=== PATIENT | male | born 1995 | race Caucasian/White ===

== ENCOUNTER → 2018-10-13 09:03 | Outpatient (CLI) | payer BC, SELFPAY ==
[2016-12-20 17:16] VITALS: BMI 34.8
--- NOTE | 2018-10-13 09:10 | RAD_ITS ---
STUDY: X-RAY - ABDOMEN/PELVIS REASON FOR EXAM: Male, 23 years old. Blood in the stool. Left lower quadrant firmness. TECHNIQUE: Single AP view of the abdomen / pelvis. COMPARISON: None. FINDINGS: Normal visualized lung bases. There is a moderate amount of colonic fecal material. The visualized liver, spleen and kidneys are grossly normal in size and morphology. Normal soft tissue structures. Normal visualized osseous structures. RAD/Abdomen Single View IMPRESSION: Moderate amount of fecal material is seen in the colon. Electronically Signed: Dom Esparza, at 14:46 EDT , Service support ,
[2018-10-13 09:55] LABS: Erythrocyte Sedimentation Rate 6 mm/hr (0-15)
[2018-10-13 09:57] LABS: Absolute Lymphocyte Count 1.84 X10^3/ul (0.83-4.51); Absolute Neutrophil Count 4.8 X10^3/uL (2.0-7.7); Basophil# 0.03 X10^3/uL; Basophil% 0.4 % (0-1); Eosinophil# 0.13 X10^3/uL; Eosinophils% 1.7 % (0-5); Hematocrit 50.7 % (40-54); Hemoglobin 17.5 g/dl (13.0-16.5); Lymphocyte # 1.84 X10^3/ul (4.0); Lymphocyte % 24.7 % (19-41); Mean Corp Hgb Conc 34.5 g/gl (32-36); Mean Corpuscular Hgb 29.3 pg (27.0-32.0); Mean Corpuscular Volume 84.9 fL (80-94); Mean Platelet Vol. 9.3 fl (6.2-12.0); Monocyte# 0.65 X10^3/uL; Monocyte% 8.7 % (0-10); Neutrophil # 4.79 X10^3/uL (2.7-7.7); Neutrophil % 64.4 % (47-70); POSITIVE COUNT NO; POSITIVE DIFFERENTIAL NO; POSITIVE MORPHOLOGY NO; Platelet Count 286 K/mm3 (150-450); RBC Distribution Width SD 43.1 fl (35.1-43.9); Red Blood Count 5.97 M/mm3 (4.6-6.2); White Blood Count 7.5 K/mm3 (4.4-11.0)
[2018-10-13 10:45] LABS: CRP < 2.90 mg/L (0.0-3.0)
[2018-10-14 16:07] LABS: Endomysial Antibody IgA Negative (Negative)
[2018-10-15 09:56] LABS: Immunoglobulin A 207 mg/dL (90-386); t-Transglutaminase IgA <2 U/mL (0-3)
== END ==
PROVIDERS: Family Provider Family Medicine; PCP Family Medicine; Referring Provider Family Medicine; Visit Provider Family Medicine
DX: K92.1 Melena (principal)
CPT/HCPCS: 36415; 74018; 82784; 83516; 85025; 85652; 86140; 86255

== ENCOUNTER 2023-05-05 11:16 | Emergency (ER) | payer BC, SELFPAY ==
[2023-05-05 11:17] VITALS: BP 165/109; PULSE 110; RESP 18; TEMP 36.8; O2SAT 99
--- NOTE | 2023-05-05 11:30 | CT_ITS ---
STUDY: CT ABDOMEN AND PELVIS WITHOUT CONTRAST REASON FOR EXAM: Male, 28 years old. Pain RADIATION DOSAGE (If Supplied By Facility): CTDIvol = ( 23.40 ) mGy, DLP = ( 1321.54 ) mGycm TECHNIQUE: Transaxial images were obtained from the dome of the diaphragm to the symphysis pubis without oral contrast, and without intravenous contrast. Sagittal and coronal images were reconstructed. Individualized dose optimization techniques were used for this CT. COMPARISON: 2010 FINDINGS: The visualized lung bases are unremarkable. The visualized portions of the heart are within normal limits. There is decreased attenuation of the liver consistent with steatosis. Normal gallbladder and extrahepatic biliary system. Normal spleen. Normal pancreas. Normal bilateral adrenal glands. Bilateral punctate nonobstructing renal stones noted. Left kidney is free of obstructive uropathy or suspicious solid lesion, Right kidney however shows hydronephrosis and hydroureter with a minimal amount of periureteral inflammatory stranding. Findings are due to a 4 mm stone in the mid right ureter seen on axial image 125 and coronal recon image 69. Normal visualized stomach. Normal small intestine. Normal colon. The appendix is visualized and appears normal. Appendix seen on coronal recon images 58 through 70 Normal abdominal aorta. Normal inferior vena cava. Normal retroperitoneum. Normal urinary bladder. Normal abdominal wall. Normal osseous structures. CT/Abdomen/Pelvis without Cont IMPRESSION: Right-sided hydronephrosis and hydroureter due to a 4 mm stone in the mid right ureter described on the images above. A lateral punctate nonobstructing nephrolithiasis. Fatty liver, no discrete lesion No free intraperitoneal fluid, air, or suspicious adenopathy, normal appendix visualized Electronically Signed: Hamzah Trinidad MD at 12:30 EST ,
--- NOTE | 2023-05-05 11:30 | EDS_ITS ---
HPI HPI - GI History of Present Illness Chief Complaint: Abd Pain Detail of Chief Complaint: Hematuria with right flank pain. Informant: patient Abdominal Pain/Flank Pain Onset: Days Context: Gradual Onset Timing: Continuous Current Severity: Mild Maximum Severity: Mild Nausea/Vomiting/Emesis GI Symptom: Negative for Nausea or Vomiting Diarrhea/Melena/Hematochezia GI Symptom: Negative for Diarrhea, Melena or Hematochezia Associated Symptoms Associated Symptoms: Positive for Hematuria; Negative for Dysuria or Frequency Narrative Narrative: 28-year-old male no significant past medical history. No prior abdominal or urologic surgery. Says he has not felt well for about a week. Today he developed hematuria and right flank pain. Denies any clots. No fever. No prior kidney stone or UTI that he is aware of. He is able to urinate. Prior similar symptoms: No Recent Illness/Hospitalization: No PFSH PFSH Medical History Asthma Contact with and (suspected) exposure to other viral communicable diseases URI (upper respiratory infection) Home Medications azithromycin 250 mg tablet See Rx Instructions PO .COMPLEX #6 tabs 08/12/22 [Rx Last Taken Unknown] benzonatate 100 mg capsule 200 mg (2 x 100 mg) PO TID PRN cough #30 caps 08/12/22 [Rx Last Taken Unknown] hydrocodone 5 mg-acetaminophen 300 mg tablet 1 tab PO Q4H PRN pain 3 days #12 tabs 05/05/23 [Rx Last Taken Unknown] Allergy/AdvReac Type Severity Reaction Status Date / Time cedex Allergy Anaphylaxis Uncoded 08/12/22 11:32 Social History Smoking Status: Never smoker alcohol intake: never ROS ROS ED ROS Narrative Gross hematuria. Suprapubic pain. Right flank pain. Review of Systems ROS Unobtainable: Denies due to encephalopathy Constitutional Constitutional ED: Denies chills or fever(s) ENT ENT ED: Denies ear pain Cardiovascular Cardiovascular: Denies chest pain Respiratory/Chest Respiratory/Chest: Denies cough or dyspnea Gastrointestinal Gastrointestinal: Reports abdominal pain and constipation; Denies diarrhea, melena, nausea or vomiting Genitourinary Genitourinary ED: Reports hematuria; Denies dysuria or urinary frequency Musculoskeletal Musculoskeletal: Reports back pain; Denies arthralgias Integumentary Denies abscess or Abrasions Neurologic Neurologic: Denies headache(s) Psychiatric Psychiatric: Denies anxiety Endocrine Endocrinology: Denies polydipsia Hematologic/Lymphatic Hematologic/Lymphatic: Denies easy bleeding Allergic/Immunologic Allergic/Immunologic ED: Denies mouth swelling or tongue swelling EXAM Physical Exam Narrative Exam Narrative: Well-appearing 28-year-old male. Vital signs stable afebrile. HEENT exam unremarkable. Neck nontender no lymphadenopathy. Lungs clear to auscultation bilaterally. Heart regular rhythm no murmur. Abdomen is soft and nontender. Normal bowel sounds no peritoneal signs. Back is nontender. No CVA tenderness. Moving all 4 extremities. Nontender no edema. Neurologically he is awake and alert with no focal motor deficits. Const Vital Signs: 05/05/23 11:17 Temperature 98.2 F Temperature Source Temporal Pulse Rate 110 H Respiratory Rate 18 Blood Pressure 165/109 H Blood Pressure Mean 127 Pulse Ox 99 Oxygen Delivery Method Room Air Positive well nourished and well developed; Negative for cachectic or contractures General Appearance ED: well developed and NAD; Negative for cachectic, contractures or pallor Nutritional Appearance: Negative for cachectic HEENT Reports moist mucous membranes normocephalic and atraumatic; Negative for trauma or tenderness Eyes PERRL and EOMs intact bilaterally General Eye ED: Negative for pale conjunctiva or scleral icterus Neck no lymphadenopathy, supple and no JVD General: Negative for tenderness Carotids: Negative for other Lymph Lymphatic: Negative for other Resp normal respiratory effort and clear to auscultation bilaterally Effort and Inspection: Negative for respiratory distress Auscultation: Negative for rales, rhonchi or wheezes Cardio regular rate, regular rhythm, S1 normal heart sound, S2 normal heart sound and no murmurs Rate: Negative for bradycardia or tachycardic Rhythm: Negative for abnormal rhythm GI non-distended and no masses Inspection: Negative for abdominal distention Auscultation: normoactive bowel sounds Palpation: soft; Negative for tender, guarding, rigid, hepatomegaly, splenomegaly, hernia, mass or pulsatile mass Back/Spine no CVA tenderness General Back: Negative for CVA tenderness Cervical Spine: Negative for cervical spine tenderness Thoracic Spine / Upper Back: Negative for thoracic spinal tenderness Lumbar Spine / Lower Back: Negative for lumbar spinal tenderness Coccyx: Negative for other Extremity full ROM General Extremety ED: Negative for edema or tenderness General Extremity: Negative for edema Neuro CN's II-XII intact bilaterally, moves all extremities and no sensory deficits noted Sensorium / Orientation: alert, oriented to person, oriented to place and oriented to time; Negative for orientation impaired, confused, lethargic or stuporous Motor Exam: strength 5/5 throughout Psych mental status grossly normal and thought process normal Appearance: Negative for other Attitude: No agitated Mood & Affect: Negative for depressed, anxious or tearful Skin no wounds General Skin Exam: Negative for jaundice or pallor Lesions: no lesions Rashes: no rashes Trauma: Negative for abrasion Nails: Negative for discolored MDM MDM MDM Narrative Medical decision making narrative: 28-year-old male with suprapubic discomfort, right flank pain and gross hematuria. Differential would include UTI versus kidney stone versus other etiologies. CAT scan labs pending. He currently does not want anything for pain or nausea. Exam patient is doing well at 12:45 PM. We went over all his test results. He does not need anything for pain at this time. He will be discharged home with a right-sided ureteral stone at 4 mm. He will be placed on Vicodin for pain. Also Motrin. Fluids. Stool softener. Follow-up as needed. Return if worse. Patient is comfortable with the plan. History & Record Review Discussion w/independent historian: Patient Additional record(s) reviewed:: Prior inpatient record, Prior outpatient record, Prior ED visit and Prior labs Lab Data Attestation: I reviewed the patient's lab results. Lab results narrative: CBC normal. White count 8.6. H&H of 15 and 45. Platelets 299. Urinalysis shows positive nitrates. 250 occult blood. Greater than 100 red cells. No white cells. No bacteria. Chemistries normal. Gap of 5 normal BUN of 16 creatinine 1.23. CAT scan shows a mid right ureteral calculi of 4 mm with hydronephrosis. Labs: Laboratory Results - last 24 hr 05/05/23 11:30 WBC 8.6 RBC 5.34 Hgb 15.9 Hct 45.5 MCV 85.2 MCH 29.8 MCHC 34.9 RDW Std Deviation 39.8 RDW Coeff of Jh 13.0 Plt Count 299 MPV 9.1 Immature Gran % (Auto) 0.200 Neut % (Auto) 59.5 Lymph % (Auto) 29.5 [place] % (Auto) 8.9 Eos % (Auto) 1.4 Baso % (Auto) 0.5 Absolute Neuts (auto) 5.1 Absolute Lymphs (auto) 2.53 Nucleated RBC % 0 Sodium 140 Potassium 3.6 Chloride 108 H Carbon Dioxide 27.0 Anion Gap 5 BUN 16 Creatinine 1.23 Est GFR (MDRD) Af Amer 91 Est GFR (MDRD) Non-Af 75 BUN/Creatinine Ratio 13.0 Glucose 87 Calcium 8.9 Urine Color Mimi Urine Clarity Cloudy Urine pH 5.0 Ur Specific [place] 1.025 Urine Protein 100 H Urine Glucose (UA) Normal Urine Ketones 5 H Urine Occult Blood 250 H Urine Nitrite Positive H Urine Bilirubin 1 H Urine Urobilinogen 1 H Ur Leukocyte Esterase 25 H Urine RBC > 100 SEEN Urine WBC 0 SEEN Ur Squamous Epith Cells 0 SEEN Urine Bacteria 0 SEEN Urine Mucus 0 SEEN Radiography Diagnostic Testing: Clinical Impression(s) from Imaging Studies Abdomen/Pelvis CT 05/05/23 11:30 IMPRESSION: Right-sided hydronephrosis and hydroureter due to a 4 mm stone in the mid right ureter described on the images above. A lateral punctate nonobstructing nephrolithiasis. Fatty liver, no discrete lesion No free intraperitoneal fluid, air, or suspicious adenopathy, normal appendix visualized Electronically Signed: Hamzah Trinidad MD at 12:30 EST Reading Location ID and State: [address] [place] [address] , Service support , Discharge Plan Triage Chief Complaint: Abd Pain ED Provider: Gabo Zhu Dx/Rx/DC Orders Clinical Impression: Gross hematuria, Kidney stone on right side Instructions: ED Kidney Stone with Pain Prescriptions: New hydrocodone-acetaminophen 5-300 mg tablet 1 tab PO Q4H PRN (Reason: pain) 3 Days Qty: 12 0RF No Action azithromycin 250 mg tablet See Rx Instructions PO .COMPLEX Qty: 6 0RF Rx Instructions: take 500 mg today (day 1), then 250 mg for 4 days (days 2-5) PO benzonatate 100 mg capsule 200 mg PO TID PRN (Reason: cough) Qty: 30 0RF Primary Care Provider: Nehemias Zhou Referrals: Pk Ritchie MD [Med Staff - Active Staff] - As Needed Nehemias Zhou DO [Primary Care Provider] - Activity Restrictions/Additional Instructions: You have a 4 mm kidney stone on the right side. It should pass. Strain your urine looking for the stone. Vicodin for more severe pain. You may also use Motrin or ibuprofen. Plenty of fluids to help you pass the stone. Also to not prevent constipation. Fiber and stool softener as needed. Follow-up with the urologist as needed. Return if you are feeling worse. Disposition Disposition: Home, Self Care
[2023-05-05 11:44] LABS: Bacteria 0 SEEN /hpf (None Seen); Mucous, Urine 0 SEEN /hpf (<or=2+); Squamous Epithelial Cells - UA 0 SEEN /hpf (0-5); White Blood Cells 0 SEEN /hpf (0-5)
[2023-05-05 11:47] LABS: Color, Urine Amber (Yellow); Glucose, Dipstick Normal (Normal); Ketone-Dipstick 5 mg/dl (Negative); Leukocyte Esterase-Dipstick 25 /ul (Negative); Nitrite-Dipstick Positive (Negative); Occult Blood-Urine 250 /ul (Negative); Protein-Dipstick 100 mg/dl (Negative); Specific Gravity, Urine 1.025 (1.002-1.030); Urine Clarity Cloudy (Clear); Urine Urobilinogen 1 mg/dl (Normal)
[2023-05-05 11:48] LABS: Absolute Lymphocyte Count 2.53 X10^3/uL (0.83-4.51); Absolute Neutrophil Count 5.1 X10^3/uL (2.0-7.7); Basophil# 0.04 X10^3/uL; Basophil% 0.5 % (0-1); Eosinophil# 0.12 X10^3/uL; Eosinophils% 1.4 % (0-5); Hematocrit 45.5 % (40-54); Hemoglobin 15.9 g/dL (13.0-16.5); Lymphocyte # 2.53 X10^3/ul (0.83-4.51); Lymphocyte % 29.5 % (19-41); Mean Corp Hgb Conc 34.9 g/dL (32-36); Mean Corpuscular Hgb 29.8 pg (27.0-32.0); Mean Corpuscular Volume 85.2 fL (80-94); Mean Platelet Vol. 9.1 fl (6.2-12.0); Monocyte# 0.76 X10^3/uL; Monocyte% 8.9 % (0-10); NRBC Flagged by Analyzer 0 % (0-5); Neutrophil % 59.5 % (47-70); Platelet Count 299 K/mm3 (150-450); RBC Distribution Width SD 39.8 fl (35.1-43.9); Red Blood Count 5.34 M/mm3 (4.6-6.2); White Blood Count 8.6 K/mm3 (4.4-11.0)
[2023-05-05 11:54] LABS: Urine Bilirubin Dipstick 1 mg/dL (Negative)
[2023-05-05 11:56] LABS: Red Blood Cells-Urine > 100 SEEN /hpf (0-5)
[2023-05-05 12:01] LABS: Anion Gap 5 (5-15); BUN 16 mg/dL (7-18); Calcium,Total 8.9 mg/dL (8.5-10.1); Chloride 108 mmol/L (98-107); Creatinine, Serum 1.23 mg/dL (0.70-1.30); EST Glomerular Filtration Rate 75 mL/min (>60); Est Glom Filt Rate - Afr Amer 91 mL/min (>60); Glucose 87 mg/dL (74-106); Potassium 3.6 mmol/L (3.5-5.1); Sodium Level 140 mmol/L (136-145)
== END 2023-05-05 13:11 | disposition home or self-care (01) ==
PROVIDERS: Emergency Provider Emergency Medicine; PCP Family Medicine; Referring Provider Emergency Medicine; Visit Provider Emergency Medicine
DX: R31.0 Gross hematuria (principal); N13.2 Hydronephrosis with renal and ureteral calculous obstruction
CPT/HCPCS: 74176; 80048; 81001; 85025; 87086; 99282; A4216

== ENCOUNTER → 2023-09-07 | Outpatient (CLI) | payer BC, SELFPAY ==
[2023-09-07 16:44] LABS: HIV - WCH Non-Reactive (Nonreactive); Syphilis Antibodies Non-reactive
== END | disposition home or self-care (01) ==
LOC: BFHLAB 11:36
PROVIDERS: PCP Family Medicine; Visit Provider Family Medicine
DX: Z20.9 Contact with and (suspected) exposure to unspecified communicable disease (principal)
CPT/HCPCS: 36415; 86703; 86780; 87491; 87591

== ENCOUNTER → 2024-03-01 | Outpatient (CLI) | payer BC, SELFPAY ==
[2024-03-01 15:37] LABS: Hemoglobin A1c 4.9 % (3.8-5.6)
[2024-03-01 15:45] LABS: Cholesterol 197 mg/dL (200); High Density Lipoprotein 40 mg/dL; Triglycerides 247 mg/dL; Very Low Density Lipoprotein 49 mg/dL (5-40)
== END | disposition home or self-care (01) ==
LOC: BFHLAB 13:35
PROVIDERS: PCP Family Medicine; Referring Provider Family Medicine; Visit Provider Family Medicine
DX: R73.01 Impaired fasting glucose (principal); E66.9 Obesity, unspecified; N52.9 Male erectile dysfunction, unspecified
CPT/HCPCS: 36415; 80061; 83036; 84403

== ENCOUNTER → 2024-03-07 | Outpatient (CLI) | payer BC, SELFPAY ==
[2024-03-07 18:33] LABS: Follicle Stimulating Hormone 5.7 mIU/mL; Luteinizing Hormone 5.5 mIU/mL
[2024-03-15 12:09] LABS: PROLACTIN 18.2 ng/mL (3.6-31.5); Testosterone, % Free 3.53 % (1.50-4.20); Testosterone, Free 7.94 ng/dL (5.00-21.00); Testosterone, Total 225 ng/dL (264-916); Transferrin 247 mg/dL (177-329)
== END | disposition home or self-care (01) ==
LOC: BFHLAB 15:16
PROVIDERS: PCP Family Medicine; Referring Provider Family Medicine; Visit Provider Family Medicine
DX: E29.1 Testicular hypofunction (principal)
CPT/HCPCS: 36415; 83001; 83002; 84146; 84402; 84403; 84443; 84466